=== PATIENT | male | born 1965 | race African-American/Black ===

== ENCOUNTER 2018-03-17 07:30 | Inpatient (IN) | payer OTHER ==
[~2018-03-17] VITALS: Ht 177.8 cm; Wt 102.1 kg
[2018-03-17] VITALS (12 sets, daily range): BP systolic 95–133; BP diastolic 60–83
[~2018-03-17 07:30] MED LIST: ceFAZolin sod 2 GM in D5W 110 ML IVPB ONE
[2018-03-17] MEDS ORDERED: Lidocaine 1% MPF 10mg/ml 5ml ONE (09:13)
[2018-03-17] MEDS ORDERED: Midazolam 2mg/2ml Inj ONE (09:14)
[2018-03-17] MEDS ORDERED: fentaNYL 100 mcg/2 mL IV ONE (09:14)
--- NOTE | 2018-03-17 09:51 | Pre-Procedure Note/Attestation ---
Pre-Procedure Note/Attestation Complete Prior to Procedure Procedure Narrative: Left L5S1 microdecompression and microdiscectomy Indications for Procedure Pre-Operative Diagnosis: lumbar radiculopathy Attestation I attest that I discussed the nature of the procedure; its benefits; risks and complications; and alternatives (and the risks and benefits of such alternatives ), prior to the procedure, with the patient (or the patient's legal quality control representative). I attest that, if there was a reasonable possibility of needing a blood transfusion, the patient (or the patient's legal quality control representative) was given the [facility] standardized written summary, pursuant to the [place] Blood Safety Act ([place] Health and Safety Code # 1645, as amended). I attest that I re-evaluated the patient just prior to the surgery and that there has been no change in the patient's H&P, except as documented below: Killian Haddad MD Mar 17, 2018 09:51
[2018-03-17] MEDS ORDERED: Propofol 1,000mg/ 100ml btl IV ONE (10:00)
[2018-03-17] MEDS ORDERED: Norco 5mg/325mg tab ORAL PRN (10:00)
[2018-03-17] MEDS ORDERED: HYDROmorphone 1mg/ml Carpuject IVP PRN (10:00)
[2018-03-17] MEDS ORDERED: Naloxone 0.4mg/ml Inj IVP PRN (10:00)
[2018-03-17] MEDS ORDERED: Sterile Water Irrig 1000ml IRRIG ONE (10:00)
[2018-03-17] MEDS ORDERED: LR 1000ml ONE (10:00)
[2018-03-17] MEDS ORDERED: HYDROmorphone 1mg/ml Carpuject SUBQ PRN (10:00)
[2018-03-17] MEDS ORDERED: HYDROcodone/Acetamin 7.5/325 tab ORAL PRN ×2 (10:00)
[2018-03-17] MEDS ORDERED: NS Irrig 1000ml ONE (10:00)
[2018-03-17] MEDS ORDERED: Succinylcholine 20mg/ml 10ml vial ONE (10:00)
[2018-03-17] MEDS ORDERED: Zemuron 50mg/5ml Inj IV ONE (10:00)
[2018-03-17] MEDS ORDERED: Vancomycin 1gm inj IVPB ONE (10:07)
[2018-03-17] MEDS ORDERED: Bupivacaine w/Epi 0.5% 30ml Vial INJ ONE (10:08)
[2018-03-17] MEDS ORDERED: Thrombin 5000 units TOPIC ONE (10:08)
[2018-03-17] MEDS ORDERED: Bacitracin 50000 Units Vial ONE (10:08)
[2018-03-17] MEDS ORDERED: Gelfoam Size TOPIC ONE (10:08)
[2018-03-17] MEDS ORDERED: TYLENOL EXTRA500 MG ORAL (10:29)
[2018-03-17] MEDS ORDERED: Morphine Sulfate 10mg/ml Inj ONE (11:13)
[2018-03-17] MEDS ORDERED: Sodium Chloride 10ml vial INJ ONE (11:14)
[2018-03-17] MEDS ORDERED: Glycopyrrolate 0.2mg/ml 1ml Vial ONE (11:18)
[2018-03-17] MEDS ORDERED: Ketorolac 30mg Inj ONE (11:18)
[2018-03-17] MEDS ORDERED: LR 1000ml 1,000 ML IVLG SCH (11:28)
--- NOTE | 2018-03-17 11:28 | Anethesia Preoperative Eval ---
Anesthesia Pre-op PMH/ROS General Date of Evaluation: Mar 17, 2018 Time of Evaluation: 10:15 Anesthesiologist: Lety ASA Score: ASA 2 Mallampati Score Class I : Soft palate, uvula, fauces, pillars visible Class II: Soft palate, uvula, fauces visible Class III: Soft palate, base of uvula visible Class IV: Only hard plate visible Mallampati Classification: Class II Surgeon: Catie Diagnosis: Lumbar radiculopathy Surgical Procedure: L5-S1 laminotomy Anesthesia History: none Social History: smoking - h/o Family History: no anesthesia problems Allergies: Coded Allergies: No Known Allergies (Unverified , 03/17/18) Patient NPO?: Yes NPO Date: Mar 16, 2018 NPO Time: 2100 Past Medical History Cardiovascular: Denies: HTN, CAD, TN, valve dz, arrhythmia, other Pulmonary: Denies: asthma, COPD, ANAID, other Gastrointestinal/Genitourinary: Reports: GERD - mild; Denies: CRI, ESRD, other Neurologic/Psychiatric: Reports: other - chronicpain; Denies: dementia, CVA, depression/anxiety, TIA Endocrine: Denies: DM, hypothyroidism, steroids, other HEENT: Denies: cataract (L), cataract (R), glaucoma, [place] (L), [place] (R), other Hematology/Immune: Denies: anemia, DVT, bleeding disorder, other Musculoskeletal/Integumentary: Denies: OA, RA, DJD, DDD, edema, other Other: other - overweight PMH Narrative: as above PSxH Narrative: colonoscopy Anesthesia Pre-op Phys. Exam Physician Exam Last Vital Signs Date Time Temp Pulse Resp B/P (MAP) Pulse Ox O2 Delivery O2 Flow Rate FiO2 03/17/18 10:00 97.5 61 18 122/83 (96) 100 97.5 03/17/18 10:00 Room Air Constitutional: NAD Neurologic: CN 2-12 intact Cardiovascular: RRR, no M/R/G Respiratory: CTA Gastrointestinal: S/NT/ND Airway Exam Mallampati Score: Class II MO: full Neck: short ROM: full Teeth: intact Dentures: no upper, no lower Anesthesia Pre-op A/P Labs see chart Studies Pre-op Studies: EKG - NSR, CXR - WNL Risk Assessment & Plan Assessment: ASA 2 Plan: GA with ETT prone position neuromonitoring Status Change Before Surgery: No Pre-Antibiotics Drug: Ancef 2 gr. Given Within 1 Hr of Incision: Yes Time Given: 11:02 Abhijit Davidson MD Mar 17, 2018 11:28
[2018-03-17] MEDS ORDERED: Midazolam 2mg/2ml Inj IVP PRN (11:30)
[2018-03-17] MEDS ORDERED: DiphenhydrAMINE 50mg/ml Inj IVP PRN (11:30)
[2018-03-17] MEDS ORDERED: fentaNYL 100 mcg/2 mL IV PRN (11:30)
[2018-03-17] MEDS ORDERED: Meperidine 50mg/ml Inj(FOR RIGORS ONLY) IV PRN (11:30)
[2018-03-17] MEDS ORDERED: Ketorolac 30mg Inj IV PRN (11:30)
[2018-03-17] MEDS ORDERED: Acetaminophen (Non formulary) 100 ML IV ONE (11:45)
--- NOTE | 2018-03-17 12:41 | Brief Operative Note ---
Immediate Post Operative Note Operative Note Pre-op Diagnosis: lumbar radiculopathy Procedure: L L5-S1 microdiscectomy Post-op Diagnosis: same as pre-op Findings: consistent w/pre-op dx studies Surgeon: Catie Welding Lead Burner: Anaya Anesthesiologist: Lety Anesthesia: general Specimen: yes Complications: none Condition: stable Fluids: 800cc crystalloids Estimated Blood Loss: minimal - 13cc Drains: none Implant(s) used?: No Killian Haddad MD Mar 17, 2018 12:40
--- NOTE | 2018-03-17 13:02 | Immediate Post-Op Evaluation ---
Immediate Post-Op Evalulation Immediate Post-Op Evalulation Procedure: L5-S1 laminotomy with decompression Date of Evaluation: Mar 17, 2018 Time of Evaluation: 13:00 IV Fluids: 1200 Blood Products: none Estimated Blood Loss: 50 Urinary Output: none Blood Pressure Systolic: 104 Blood Pressure Diastolic: 60 Pulse Rate: 71 Respiratory Rate: 20 O2 Sat by Pulse Oximetry: 99 Temperature (Fahrenheit): 97.3 Pain Score (1-10): 1 Nausea: No Vomiting: No Complications none Patient Status: reacts, patent, extubated, none Hydration Status: adequate Abhijit Davidson MD Mar 17, 2018 13:02
[2018-03-17] MEDS ORDERED: ceFAZolin sod 1 GM in D5W 55 ML IV SCH ×2 (14:00→19:00)
[2018-03-17] MEDS: D5 1/2NS 1,000 ML IV SCH ×2 (14:56→19:51)
--- NOTE | 2018-03-17 15:04 | Diagnostic Imaging Report ---
Indication: Back pain. Intraoperative imaging Comparison: None Findings: Single lumbar localization film shows that instrument posterior to the L4-5 disc. IMPRESSION: Intraoperative imaging
[2018-03-17] MEDS ORDERED: NORCO 5-325 TA1 EACH ORAL (16:33)
[2018-03-17] MEDS ORDERED: SOMA350 MG PO (16:33)
[2018-03-17] MEDS ORDERED: NAPROXEN250 MG ORAL (16:34)
[2018-03-17] MEDS ORDERED: Docusate 100mg cap ORAL SCH (18:00)
[2018-03-17] MEDS ORDERED: D5 1/2NS 1000ml IV ONE (20:49)
[2018-03-17] MEDS ORDERED: Tubing IV Secondary IV ONE (20:49)
--- NOTE | 2018-03-18 01:30 | Operative Note - Dictated ---
DATE OF OPERATION: 03/17/2018 PREOPERATIVE DIAGNOSIS: L5-S1 disk protrusion with stenosis and left lower extremity radiculopathy. POSTOPERATIVE DIAGNOSIS: L5-S1 disk protrusion with stenosis and left lower extremity radiculopathy. PROCEDURES PERFORMED: 1. Left-sided L5-S1 interlaminar laminotomy, medial facetectomy, foraminotomy, and microdiskectomy. 2. Intraoperative use of microscope. 3. Intraoperative use of fluoroscopy. SURGEON: Killian Haddad M.D. AUTISM TUTOR: Cesar Julien M.D. ANESTHESIA: General endotracheal anesthesia. ANESTHESIOLOGIST: Abhijit Davidson M.D. INTRAOPERATIVE FINDINGS: Herniated nucleus pulposus, central and the left paracentral at L5-S1 with impingement on the traversing and exiting nerve roots at L5-S1 with lateral recess, subarticular, central and foraminal stenosis. ESTIMATED BLOOD LOSS: 13 mL. FLUIDS: 1 L crystalloid. INDICATIONS: This is a pleasant gentleman who failed nonoperative treatment and options for above treatment was given. Please note that there was a transitional vertebra at S1 to the rudimentary disk. The operative level was the correct level, which was previously labeled at L5-S1 with the disk space protrusion. Risks, alternatives, and benefits were discussed with the patient at length. Risks include, but are not limited to, anesthesia complications including , medical complications including liver, kidney, cardiopulmonary deficits, bleeding, infection, dural tear, CSF leak, nerve root injury, pars fracture, instability, reherniation, as well as continued symptoms. The patient understood and wished to proceed. Written and verbal consent was given. DESCRIPTION OF OPERATION: The patient was brought into the operating room supine on the stretcher. Subsequently, appropriate IV lines were placed and 2 g of Ancef was administered. A surgical time-out was called. Anesthesia was induced and the patient was successfully intubated. Sequential compression devices were placed on to the bilateral lower extremities. The patient was gently turned over on to the Huy frame table and all bony prominences were well padded including the upper and lower extremities. Preoperative fluoroscopy was used to estimate and plan the midline incision at L5-S1. At this point, an indelible marker was used overlying the L5-S1 and a vertical marking over the L5-S1 interspace was done. The patient was prepped and draped in usual sterile fashion with alcohol, chlorhexidine scrub, and ChloraPrep. Me and my video library assistant were prepped and gowned appropriately as well. Now, attention was diverted to starting the case. The intraoperatively sterilely draped microscope was brought into the field and was used from skin incision to skin closure. At this point, a scalpel was used to make a vertical incision at the midline. Subperiosteal dissection through the dorsal lumbar fascia was accomplished with a monopolar cautery and glass sander belt retractors were set into place. A radiopaque marker was placed at the lower vertebra pedicle level and via lateral fluoroscopy the S1 pedicle was identified. Now, attention was diverted to the decompression and with the use of a high-speed drill #2 through #5 Kerrison punches, straight and curved curette, Anson probe, dental probe, nerve probe as well as a nerve retracting and Bridgman 4 retractor, and interlaminar laminotomy, medial facetectomy, and foraminotomy was accomplished. Ligamentum flavum was removed. The ligamentum flavum was found to be hypertrophied and at this point a complete foraminotomy for the exiting L5 nerve root was accomplished. There was significant foraminal stenosis and with the microscope, microdissection of neural elements was completed and the neural elements were carefully medially retracted and a large disk herniation was found, central and left paracentral causing impingement of the traversing and exiting nerve roots with an intraforaminal component impinging on the exiting L5 nerve root. Hemostasis was achieved with bipolar cautery, FloSeal, Gelfoam, and thrombin. At this point, a slit incision was carried out into the anulus and with the use of an Jakub curette, Bertha, Peapod, pituitary rongeurs, forward angled pituitary rongeurs, backward angled pituitary rongeurs, Peapod, a diskectomy was done. Disk material was removed and was sent out as specimen. A large portion of the disk material was also sucked out via suction while the diskectomy was done until the floor of the canal was flat and all the neural elements were completely decompressed including the central canal, subarticular recess, lateral recess foramina and complete decompression of the common dural sac and the traversing and exiting nerve roots on the left side at L5-S1. Once this was done, hemostasis was achieved. Valsalva 40 mmHg was sustained and there was no CSF leak. The disk space was copiously irrigated with triple antibiotic solution. All three fragments were removed. Further investigation of the interbody space did not show any further loose disk material and now attention was diverted to closure. There was no bleeding and therefore a decision was made not to use a drain. Now, attention was diverted to closure. A 1 g of vancomycin powder was placed subfascially as well as suprafascially. The dorsal lumbar fascia was closed with #1 Vicryl sutures in a watertight interrupted fashion. Copious triple antibiotic solution again was used, and the subcuticular and subdermal layers were closed with 2-0 Vicryl sutures in a watertight interrupted fashion. All sponge, needle, instrument, and counts were correct. EBL was 13 mL. Fluids was 1 liter of crystalloid. The skin was closed with Dermabond. Sterile dressing tape was placed. The patient was extubated, was turned supine, was found to be neurovascularly intact and taken to the recovery room in stable condition. He was given postoperative instructions. He was admitted to the hospital and given postoperative prescription as well as the postoperative appointment in 7 to 10 days. Killian Haddad M.D. DR: MILKA JOB#: [id number] CC:
--- NOTE | 2018-03-18 07:55 | Discharge Summary ---
Discharge Summary Discharge Summary _ DATE OF ADMISSION: 03/17/2018 DATE OF DISCHARGE: 03/17/2018 BRIEF HOSPITAL COURSE: Patient is a 52 year old male, diagnosed with L5-S1 disc protrusion with stenosis and left lower extremity radiculopathy, who has failed nonoperative treatment, was admitted and underwent left-sided L5-S1 laminotomy and medial facetectomy, foraminotomy and microdiscectomy. He tolerated procedure well. Surgery was uneventful. Post-operatively, patient was admitted for post-op care. Patient was placed on SCDs for DVT prophylaxis and was encouraged use of incentive spirometer. Patient was given pain management. Patient was seen by PT and OT. Diet was advanced. Incision was clean, dry and intact. Patient was ambulating well with good pain control and tolerating diet. Patient was eventually cleared for discharge home. FINAL DIAGNOSES: L5-S1 disc protrusion with stenosis and left lower extremity radiculopathy Status post left-sided L5-S1 interlaminar laminotomy, medial facetectomy, foraminotomy and microdiscectomy DISPOSITION: Patient was discharged home. DISCHARGE MEDICATIONS: Refer to Discharge Medication List. DISCHARGE INSTRUCTIONS: Follow-up in 1-2 weeks. I have been assigned to dictate discharge summary on this account, and I was not involved in the patient's management. Fabienne Hong NP Mar 18, 2018 07:55
== END 2018-03-17 20:50 | disposition home or self-care (01) | DRG 520 ==
LOC: SDSOVERFLO 09:19 → 3E 14:34
PROC: 0SB40ZZ Excision of Lumbosacral Disc, Open Approach (ICD-10-PCS; principal; 2018-03-17 10:30)
PROC: 01NB0ZZ Release Lumbar Nerve, Open Approach (ICD-10-PCS; principal; 2018-03-17 10:30)
DX: M51.17 Intervertebral disc disorders with radiculopathy, lumbosacral region (principal); M48.07 Spinal stenosis, lumbosacral region; V89.2XXS Person injured in unspecified motor-vehicle accident, traffic, sequela; E66.9 Obesity, unspecified
CPT/HCPCS: 72020; 76000; 87081; 94003; 94150; J2250; J2405